=== PATIENT | female | born 1985 | race Two or more races ===

== ENCOUNTER → 2017-08-18 | Emergency (ER) | payer OTHER ==
[~2017-08-18] VITALS: Ht 160 cm; Wt 65.8 kg
[~2017-08-18] MED LIST: KEFLEX500 MG PO; PYRIDIUM DS200 MG PO
== END | disposition home or self-care (01) ==
LOC: ER 23:00
DX: O23.41 Unspecified infection of urinary tract in pregnancy, first trimester (principal); Z34.81 Encounter for supervision of other normal pregnancy, first trimester

== ENCOUNTER 2018-01-15 14:45 | Inpatient (IN) | payer OTHER ==
[~2018-01-15] VITALS: Ht 160 cm; Wt 76.2 kg
[2018-02-07] MEDS ORDERED: PRENATAL PLUS1 EAC2 PO (10:44)
== END 2018-02-10 09:56 | DRG 766 ==
LOC: ADM 14:45 → EDSTATUS 14:45 → LDR 02-07 07:00 → O/R 02-07 10:10 → OB/GYN 02-07 10:10 → LDR 02-07 14:45 → OB/GYN 02-07 17:43 → LDR 02-15 14:45
PROVIDERS: Obstetrics & Gynecology
PROC: 0UB70ZZ Excision of Bilateral Fallopian Tubes, Open Approach (ICD-10-PCS; 2018-02-07)
PROC: 4A1HXCZ Monitoring of Products of Conception, Cardiac Rate, External Approach (ICD-10-PCS; 2018-02-07)
PROC: 4A033R1 Measurement of Arterial Saturation, Peripheral, Percutaneous Approach (ICD-10-PCS; 2018-02-07)
PROC: 10D00Z1 Extraction of Products of Conception, Low, Open Approach (ICD-10-PCS; principal; 2018-02-07 07:00)
DX: O34.211 Maternal care for low transverse scar from previous cesarean delivery (principal); O75.82 Onset (spontaneous) of labor after 37 completed weeks of gestation but before 39 completed weeks gestation, with delivery by (planned) cesarean section; Z3A.38 38 weeks gestation of pregnancy; Z37.0 Single live birth; Z30.2 Encounter for sterilization